=== PATIENT | male | born 1975 | race African-American/Black ===

== ENCOUNTER 2019-04-20 07:29 | Emergency (ER) | payer OTHER ==
[~2019-04-20] VITALS: Ht 180.3 cm; Wt 136.1 kg
[~2019-04-20 07:29] MED LIST: CARAFATE 1 GM TA1 G1 PO; PROTONIX40 M1 PO
[2019-04-20] MEDS ORDERED: GUAIFEN-CODEINE10 ML PO (08:43)
[2019-04-20 09:00] VITALS: BP 150/86
== END 2019-04-20 09:29 | disposition home or self-care (01) ==
LOC: ER 07:29
DX: J06.9 Acute upper respiratory infection, unspecified (principal); F17.210 Nicotine dependence, cigarettes, uncomplicated

== ENCOUNTER 2019-06-16 13:38 | Emergency (ER) | payer OTHER ==
[~2019-06-16] VITALS: Ht 177.8 cm; Wt 113.4 kg
[~2019-06-16 13:38] MED LIST changes: +GUAIFEN-CODEINE10 ML PO
[2019-06-16 14:21] LABS: ABSOLUTE NEUTROPHILS 12.5 thou/uL (1.4-8.2); BASOPHILS 0.3 % (0.0-2.0); EOSINOPHILS 0.5 % (0.0-3.0); HEMATOCRIT 42.6 % (42.0-52.0); HEMOGLOBIN 14.4 gm/dL (14.0-18.0); LYMPHOCYTES 3.8 % (24.0-44.0); MCH 29.1 pg (26.0-34.0); MCHC 33.8 g/dL (28.0-37.0); MONOCYTES 2.3 % (1.0-8.0); PLATELET COUNT 247 thou/uL (150-400); POLYS 93.1 % (36.0-66.0); RBC 4.96 mil/uL (4.50-6.00); RDW 14.8 % (10.5-14.5); WBC 13.4 thou/uL (4.0-11.0)
[2019-06-16 14:27] LABS: CALCIUM 8.9 mg/dL (8.5-10.1); POTASSIUM 3.1 mmol/L (3.5-5.1)
[2019-06-16 14:33] LABS: ALBUMIN 3.7 g/dL (3.4-5.0); DIRECT BILIRUBIN 0.2 mg/dL (<0.1-0.3); TOTAL BILIRUBIN 0.8 mg/dL (<0.1-1.0); TOTAL PROTEIN 7.8 g/dL (6.4-8.2)
[2019-06-16] MEDS ORDERED: ZOFRAN ODT4 MG DISSOLVE (15:40)
[2019-06-16 15:41] LABS: URINE BILIRUBIN NEGATIVE (Negative); URINE BLOOD TRACE (Negative); URINE CLARITY CLEAR; URINE COLOR YELLOW; URINE GLUCOSE-RANDOM* NEGATIVE (Negative); URINE KETONES NEGATIVE (Negative); URINE LEUKOCYTES-REFLEX NEGATIVE (Negative); URINE NITRITE-REFLEX NEGATIVE (Negative); URINE PROTEIN (DIPSTICK) NEGATIVE (Negative)
[2019-06-16 16:33] VITALS: BP 150/86
== END 2019-06-16 16:15 | disposition home or self-care (01) ==
LOC: ER 13:38
PROVIDERS: Nurse Practitioner
DX: K57.90 Diverticulosis of intestine, part unspecified, without perforation or abscess without bleeding (principal); R11.2 Nausea with vomiting, unspecified; F17.210 Nicotine dependence, cigarettes, uncomplicated